=== PATIENT | female | born 1975 | race Two or more races ===

== ENCOUNTER 2022-07-18 09:45 | Inpatient (IN) | payer OTHER ==
[~2022-07-18] VITALS: Ht 172.7 cm; Wt 146.5 kg
[2022-07-18] MEDS ORDERED: ATACAND HCT 321 EAC1 PO (13:04)
[2022-07-18] MEDS ORDERED: TRANDATE300 MG PO (13:04)
[2022-07-18] MEDS ORDERED: METFORM PO (13:05)
== END 2022-07-26 12:50 | disposition home or self-care (01) | DRG 330 ==
LOC: SURH 07-23 05:47 → O/R 07-23 05:47 → SURH 07-23 08:30
PROVIDERS: ADMIT Colon & Rectal Surgery; ATTEND Colon & Rectal Surgery
PROC: 07BB4ZZ Excision of Mesenteric Lymphatic, Percutaneous Endoscopic Approach (ICD-10-PCS; 2022-07-23)
PROC: 0DQU4ZZ Repair Omentum, Percutaneous Endoscopic Approach (ICD-10-PCS; 2022-07-23)
PROC: 3E0F7SF Introduction of Other Gas into Respiratory Tract, Via Natural or Artificial Opening (ICD-10-PCS; 2022-07-23)
PROC: 0DTF4ZZ Resection of Right Large Intestine, Percutaneous Endoscopic Approach (ICD-10-PCS; principal; 2022-07-23 08:30)
DX: C18.0 Malignant neoplasm of cecum (principal); K91.72 Accidental puncture and laceration of a digestive system organ or structure during other procedure; R59.0 Localized enlarged lymph nodes; E11.9 Type 2 diabetes mellitus without complications; I10 Essential (primary) hypertension; Z79.84 Long term (current) use of oral hypoglycemic drugs; Z79.4 Long term (current) use of insulin